=== PATIENT | female | born 1955 | race Caucasian/White ===

== ENCOUNTER 2017-08-12 06:54 | Day surgery (SDC) | payer OTHER ==
[~2017-08-12 06:54] MED LIST: RINGER'S SOLUTION,LACTATED 1,000 ML IV PRN
[2017-08-12] MEDS ORDERED: RINGER'S SOLUTION,LACTATED 1,000 ML IV ONE (07:23)
[2017-08-12] MEDS ORDERED: RINGER'S SOLUTION,LACTATED 1,000 ML IV PRN (08:39)
[2017-08-12 09:36] VITALS: BP 119/55
--- NOTE | 2017-08-12 20:47 | OR ---
Operative Report - Dictated Report Narrative: OPERATIVE REPORT DATE OF OPERATION: 08/12/2017 PREOPERATIVE DIAGNOSIS: No recent colon studies POSTOPERATIVE DIAGNOSIS: 4 mm polyp at 50 cm (pathology pending) OPERATION: Colonoscopy with hot biopsy forceps polypectomy at 50 cm SURGEON: Cuong Mckeon MD ANESTHESIA: ALEKSANDR Solano CRNA INDICATIONS FOR PROCEDURE: The patient is a 62-year-old female referred by Dr. Wallace. She had a normal colonoscopy in 2007. There is no family history of colon cancer. The patient is currently asymptomatic and moves her bowels daily FINDINGS: 4 mm polyp at 50 cm (pathology pending). Very capacious colon otherwise normal exam to the cecum NARRATIVE OF PROCEDURE: The patient was identified in the holding area, and prior to the administration of anesthetic, a multidisciplinary timeout was observed. With the patient in the left lateral position and after the administration of intravenous sedation, the perineum was inspected. There was no evidence of pilonidal disease or skin breakdown. The external appearance of the anus was normal. Sphincter tone was good. The flexible fiberoptic colonoscope was inserted into the rectum which was insufflated with air. The rectal mucosa and submucosal vascular pattern appeared normal, the prep was seen to be complete. The scope was advanced through the sigmoid colon, up the descending colon, and around the splenic flexure where the triangular haustral architecture of the transverse colon was seen. The scope was advanced across the transverse colon, around the hepatic flexure to the cecum, where the confluence of tenia and the ileocecal valve were identified. The mucosa at this level appeared normal. The scope was then slowly withdrawn in a circular fashion so that all aspects of colonic mucosa were inspected. The colon was capacious and character requiring standard reduction maneuvers to reach the cecum. The haustral architecture appeared well preserved throughout with no evidence of external compression. The mucosa and submucosal vascular pattern appeared normal, specifically there was no gross evidence to suggest colitis or inflammatory bowel disease and no AV malformations were seen. No alicia diverticulosis was demonstrated. A 4 mm polyp at 50 cm was identified. It was biopsied with hot biopsy forceps and thoroughly destroyed with electrocautery. The site was seen to be complete and hemostatic. The scope was gradually withdrawn to the level of the rectum. As much insufflated air as possible was removed. The scope was withdrawn from the patient and the procedure terminated. The patient tolerated the anesthetic and procedure well without complication and was transferred back to the ambulatory surgery area awake and in stable condition. The patient remained stable throughout a period of postoperative observation. She denied abdominal discomfort, was able to tolerate by mouth intake, and was up without assistance. I shared the operative findings with the patient and her and she was given copies of the photographs which appear in the medical record. She was discharged home with instructions not to engage in hazardous activity today, but may resume normal activity tomorrow, and advance diet as tolerated. She is to continue those medications as listed in the history and physical exam. I made arrangements to contact her with the biopsy reports and will make additional recommendations for treatment and follow-up based upon those results. Reviewed and electronically signed
== END 2017-08-12 06:55 | disposition home or self-care (01) ==
LOC: AMB 06:54
PROVIDERS: ATTEND Surgery
PROC: 0DBE8ZX Excision of Large Intestine, Via Natural or Artificial Opening Endoscopic, Diagnostic (ICD-10-PCS; principal; 2017-08-12)
DX: E11.9 Type 2 diabetes mellitus without complications; K63.5 Polyp of colon; Z12.11 Encounter for screening for malignant neoplasm of colon; Z68.32 Body mass index [BMI] 32.0-32.9, adult